=== PATIENT | male | born 1990 | race African-American/Black ===

== ENCOUNTER 2017-09-27 16:03 | Emergency (ER) | payer OTHER ==
[~2017-09-27] VITALS: Ht 185.4 cm; Wt 95.7 kg
[~2017-09-27 16:03] MED LIST: HYDR-3126 PO
[2017-09-27 16:06] VITALS: Ht 185.4 cm; Wt 95.7 kg
[2017-09-27 16:48] LABS: BASO % 0.4 %; BASO ABS # 0.02 K/uL (0-0.2); EOS % 0.4 %; EOS ABS # 0.02 K/uL (0-0.5); HEMATOCRIT 39.4 % (42-52); HEMOGLOBIN 13.4 g/dL (14.0-18.0); IG# 0.01 K/uL (0.00-0.02); LYMPH ABS # 1.29 K/uL (1.2-3.4); MEAN CELL VOLUME 88.3 fL (80-100); MONO % 7.6 %; MONO ABS # 0.41 K/uL (0.11-0.59); NEUT % 67.4 %; NEUT ABS # 3.62 K/uL (1.4-6.5); PLATELET COUNT 180 K/uL (130-400); RED CELL DISTRIBUTION WIDTH CV 12.6 % (11.5-14.5); RED CELL DISTRIBUTION WIDTH SD 40.8 fL (36.4-46.3); WHITE BLOOD COUNT 5.37 K/uL (4.8-10.8)
--- NOTE | 2017-09-27 17:01 | EMERGENCY ROOM VISIT NOTE ---
History Report prepared by Mil: Justice Varela Under the Supervision of: Dr. Trevor Wolff M.D. First contact with patient: 16:12 Chief Complaint: OTHER COMPLAINT Stated Complaint: SWOLLOWED SOME PILLS History of Present Illness The patient is a 27 year old white male with a past medical history of schizophrenia and overdose who presents to the ED with a cc of taking 30 unknown pills at once at 1440 today. The patient reports the pills were one of his medications in which he did not take and saved for 30 days. The patient reports that he is on Zoloft, Trilafon and Benadryl but he did not seek any psychiatric help in the correction. The patient also states that he has been incarcerated for 5 years. Positive SI and fatigue. Negative for allergies, tobacco use, alcohol use, and surgeries. Source of History: patient Onset: Today at 1440 Position: head, arm (bilateral), abdomen, leg (bilateral) Quality: other (Overdose) Associated Symptoms: + fatigue Note: HPI limited due to lack of cooperation Review of Systems Limited due to lack of cooperation Past Medical & Surgical Medical Problems: (1) No known problems (2) Schizophrenia Family History Patient reports no known family medical history. Social History Smoking Status: Unknown if Ever Smoked Marital Status: single Housing Status: other Occupation Status: unemployed Current/Historical Medications Scheduled Diphenhydramine Hcl (Sleep) (Diphenhydramine Hcl), 50 MG PO HS Perphenazine (Trilafon), 8 MG PO QAM Perphenazine (Trilafon), 12 MG PO HS Sertraline (Zoloft), 50 MG PO QAM Allergies Coded Allergies: Fish (Verified Allergy, Unknown, ON LIST, 08/13/17) Physical Exam Vital Signs Date Time Temp Pulse Resp B/P (MAP) Pulse Ox O2 Delivery O2 Flow Rate FiO2 09/27/17 19:14 36.8 71 14 138/77 98 09/27/17 17:48 68 09/27/17 17:42 66 14 126/68 09/27/17 16:06 36.8 85 20 146/78 98 Room Air Physical Exam GENERAL: Awake, alert, well appearing, no distress, wearing orange jumpsuit and shackles HENT: Normocephalic, atraumatic. TM's normal. Oropharynx unremarkable. EYES: PERRL. EOMI. Normal conjunctiva. Sclera non-icteric. NECK: Supple. No nuchal rigidity. FROM. No JVD or bruit. RESPIRATORY: CTA CARDIAC: RRR. No murmur. ABDOMEN: Soft, non distended. No tenderness to palpation. No rebound or guarding. No masses. MUSCULOSKELETAL: Unremarkable. No edema. No discoloration. Gross motor strength symmetric. NEURO: Cranial nerves 2-12 grossly intact. Normal sensorium. No sensory or motor deficits noted. Speech normal. No pronator drift. SKIN: No rash or jaundice noted. Birthmark on left side of face. LYMPH: No adenopathy. PSYCH: flat affect. positive suicidal ideation. negative homicidal ideation. No [facility] Medical Decision & Procedures Laboratory Results 09/27/17 16:30 Red Blood Count 4.46, Mean Corpuscular Volume 88.3, Mean Corpuscular Hemoglobin 30.0, Mean Corpuscular Hemoglobin Concent 34.0, Mean Platelet Volume 11.0, Neutrophils (%) (Auto) 67.4, Lymphocytes (%) (Auto) 24.0, Monocytes (%) (Auto) 7.6, Eosinophils (%) (Auto) 0.4, Basophils (%) (Auto) 0.4, Neutrophils # (Auto) 3.62, Lymphocytes # (Auto) 1.29, Monocytes # (Auto) 0.41, Eosinophils # (Auto) 0.02, Basophils # (Auto) 0.02 09/27/17 16:30 Test 09/27/17 16:30 09/27/17 18:10 White Blood Count 5.37 K/uL (4.8-10.8) Red Blood Count 4.46 M/uL (4.7-6.1) Hemoglobin 13.4 g/dL (14.0-18.0) Hematocrit 39.4 % (42-52) Mean Corpuscular Volume 88.3 fL (80-100) Mean Corpuscular Hemoglobin 30.0 pg (25-34) Mean Corpuscular Hemoglobin Concent 34.0 g/dl (32-36) Platelet Count 180 K/uL (130-400) Mean Platelet Volume 11.0 fL (7.4-10.4) Neutrophils (%) (Auto) 67.4 % Lymphocytes (%) (Auto) 24.0 % Monocytes (%) (Auto) 7.6 % Eosinophils (%) (Auto) 0.4 % Basophils (%) (Auto) 0.4 % Neutrophils # (Auto) 3.62 K/uL (1.4-6.5) Lymphocytes # (Auto) 1.29 K/uL (1.2-3.4) Monocytes # (Auto) 0.41 K/uL (0.11-0.59) Eosinophils # (Auto) 0.02 K/uL (0-0.5) Basophils # (Auto) 0.02 K/uL (0-0.2) RDW Standard Deviation 40.8 fL (36.4-46.3) RDW Coefficient of Variation 12.6 % (11.5-14.5) Immature Granulocyte % (Auto) 0.2 % Immature Granulocyte # (Auto) 0.01 K/uL (0.00-0.02) Anion Gap 4.0 mmol/L (3-11) Est Creatinine Clear Calc Drug Dose 139.0 ml/min Estimated GFR () 134.3 Estimated GFR (Non- 115.9 BUN/Creatinine Ratio 14.3 (10-20) Calcium Level 8.5 mg/dl (8.5-10.1) Total Bilirubin 0.4 mg/dl (0.2-1) Direct Bilirubin < 0.1 mg/dl (0-0.2) Aspartate Amino Transf (AST/SGOT) 18 U/L (15-37) Alanine Aminotransferase (ALT/SGPT) 31 U/L (12-78) Alkaline Phosphatase 70 U/L (45-117) Total Protein 7.4 gm/dl (6.4-8.2) Albumin 4.0 gm/dl (3.4-5.0) Thyroid Stimulating Hormone (TSH) 2.150 uIu/ml (0.300-4.500) Salicylates Level < 1.7 mg/dl (2.8-20) Acetaminophen Level < 2 ug/ml (10-30) Ethyl Alcohol mg/dL < 3.0 mg/dl (0-3) Urine Color YELLOW Urine Appearance CLEAR (CLEAR) Urine pH 6.5 (4.5-7.5) Urine Specific [place] 1.013 (1.000-1.030) Urine Protein NEG (NEG) Urine Glucose (UA) NEG (NEG) Urine Ketones NEG (NEG) Urine Occult Blood NEG (NEG) Urine Nitrite NEG (NEG) Urine Bilirubin NEG (NEG) Urine Urobilinogen NEG (NEG) Urine Leukocyte Esterase NEG (NEG) Urine Opiates Screen NEG (NEG) Urine Methadone, Qualitative NEG (NEG) Urine Barbiturates NEG (NEG) Urine Phencyclidine (PCP) Level NEG (NEG) Ur Amphetamine/Methamphetamine NEG (NEG) MDMA (Ecstasy) Screen NEG (NEG) Urine Benzodiazepines Screen NEG (NEG) Urine Cocaine Metabolite NEG (NEG) Urine Marijuana (THC) NEG (NEG) Laboratory results reviewed by me ECG Per My Interpretation Indication: other (Overdose) Rate (beats per minute): 72 Rhythm: normal sinus Findings: other (Normal intervals, normal axis, single TWI in lead 3) Comparison ECG Date: August 14, 2017 Change: no significant change ED Course 1620: The patient was evaluated in room A2. A complete history and physical exam was performed. 1800: I reevaluated the patient and he is resting comfortably in bed. I spoke with correction officials and they said that the only medication he would have access to is Benadryl. 1858: I reevaluated the patient. Discussed results and discharge instructions: He verbalized understanding and agreement. The patient is ready for discharge. Medical Decision Nursing notes reviewed. Ancillary studies and prior records reviewed. The patient is a 27 year old white male with a past medical history of schizophrenia and overdose who presents to the ED with a cc of taking 30 unknown pills at once at 1440 today. Differential diagnosis: Etiologies such as mood disorder, infection, hypoglycemia, electrolyte abnormalities, cardiac sources, intracerebral event, toxicologic, neurologic, as well as others were entertained. Patient was seen and evaluated the bedside. Per the patient the patient had taken an unknown amount of medications. The patient is on some medications for a psych history while he is incarcerated. Patient does appear somewhat tired but does answer questions appropriately and has a GCS of 15. The patient states that he would have just taken any of his medications. Patient states because of this he has not taken that medication for approximately 30 days and has been saving it to take all at once. Patient has had one prior history of this in the past. Patient did blood work completed, EKG along with a tox screen and urinalysis and urine drug screen. Patient's EKG is fairly unremarkable. The patient does have T wave inversion inferiorly which is old. Patient's other blood work is unremarkable. The patient's vital signs are stable and there is no QRS widening. After talking with the guards it sounds like the patient may have only taken Benadryl. Patient's other blood work is fairly unremarkable. The patient has had stable vitals. No QRS widening I do not believe the patient requires bicarb or further treatment as he has negative studies for, ingestion. I did have the charge nurse called the assisted to ensure that there was psych available at their facility. There is. He does not require a psych evaluation while here but can have further evaluation back in assisted. Patient was given strict follow-up, discharge, and return precautions. All questions were answered. Patient was deemed suitable for outpatient follow-up at this time. Patient agreed with the plan of care and was safely discharged home. Medication Reconcilliation Current Medication List: was personally reviewed by me Blood Pressure Screening Patient's blood pressure: Normal blood pressure Impression Primary Impression: Overdose Additional Impression: Anemia Scribe Attestation The scribe's documentation has been prepared under my direction and personally reviewed by me in its entirety. I confirm that the note above accurately reflects all work, treatment, procedures, and medical decision making performed by me. Departure Information Dispostion Home / Self-Care Referrals Dionna CASTLE (PCP) Forms HOME CARE DOCUMENTATION FORM, IMPORTANT VISIT INFORMATION, WORK / SCHOOL INSTRUCTIONS Patient Instructions ED Overdose Intentional, My [facility] Additional Instructions Please return to the emergency department if you have worsening or recurrent symptoms not amenable to at-home treatment. Please call for a follow-up appointment with her primary care physician. Please take your medications as prescribed. If you have other concerns and/or complaints please feel free to also call your primary care physician's office or return the ED for further evaluation, management, and treatment. Take your medications as prescribed. You have been examined and treated today on an emergency basis only. This is not a substitute for, or an effort to provide, complete comprehensive medical care. It is impossible to recognize and treat all injuries or illnesses in a single emergency department visit. It is therefore important that you follow up closely with [facility], your PCP, and/or your specialist(s). Call as soon as possible for an appointment. Thank you for your time and consideration. I look forward to speaking with you again soon. Please don't hesitate to call us if you have any questions. Problem Qualifiers Primary Impression: Overdose Encounter type: initial encounter Injury intent: intentional self-harm Qualified Codes: T50.902A - Poisoning by unspecified drugs, medicaments and biological substances, intentional self-harm, initial encounter Additional Impression: Anemia Anemia type: unspecified type Qualified Codes: D64.9 - Anemia, unspecified
[2017-09-27 17:16] LABS: ALKALINE PHOSPHATASE 70 U/L (45-117); ALT/SGPT 31 U/L (12-78); AST/SGOT 18 U/L (15-37); BLOOD UREA NITROGEN 13 mg/dl (7-18); CALCIUM 8.5 mg/dl (8.5-10.1); CARBON DIOXIDE 27 mmol/L (21-32); CREATININE 0.91 mg/dl (0.60-1.40); GLUCOSE 81 mg/dl (70-99); POTASSIUM 3.8 mmol/L (3.5-5.1); SODIUM 140 mmol/L (136-145); TOTAL PROTEIN 7.4 gm/dl (6.4-8.2)
[2017-09-27] MEDS ORDERED: DIPH50TA10 PO (17:47)
[2017-09-27] MEDS ORDERED: PERP4TAB37 PO ×2 (17:48→17:53)
[2017-09-27] MEDS ORDERED: SERT25TA PO (17:54)
[2017-09-27 19:14] VITALS: BP 138/77; PULSE 71; TEMP 36.8; O2SAT 98
== END 2017-09-27 19:15 | disposition home or self-care (01) ==
LOC: C.EDB 16:04 → C.EDA 19:15
DX: T50.902A Poisoning by unspecified drugs, medicaments and biological substances, intentional self-harm, initial encounter (principal); X58.XXXA Exposure to other specified factors, initial encounter; Y92.149 Unspecified place in prison as the place of occurrence of the external cause; D64.9 Anemia, unspecified; F20.9 Schizophrenia, unspecified; R45.851 Suicidal ideations; Z79.899 Other long term (current) drug therapy; Z91.018 Allergy to other foods